=== PATIENT | female | born 1990 | race Hispanic/Latino ===

== ENCOUNTER 2018-05-13 18:53 | Emergency (ER) | payer OTHER ==
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
[2018-05-13 21:11] LABS: Absolute Lymphocytes (CBC) 2.1 K/uL (0.7-4.9); Absolute Monocytes 0.6 K/uL (0.1-1.3); Absolute Neutrophil 6.1 K/uL (1.8-8.0); Basophils % 0.5 % (0-1.3); Hematocrit 41.3 % (36.0-45.0); Lymphocytes % 22.8 % (15.3-44.8); MCH 31.3 pg (27.0-35.0); MCV 91.8 fL (80-100); MPV 10.3 fL (7.6-11.3); Monocytes % 6.5 % (3.3-12.3)
[2018-05-13 21:28] LABS: Albumin 4.1 g/dL (3.4-5.0); Bilirubin Direct 0.1 mg/dL (0-0.2); Bilirubin Total 0.3 mg/dL (0.2-1.0); Potassium 3.6 mmol/L (3.5-5.1); Protein, Total 8.6 g/dL (6.4-8.2)
[2018-05-13 21:43] LABS: Urine Amorphous Sediment 1+ /HPF (NONE SEEN); Urine Bacteria 20-50 /HPF (<20); Urine Culture Reflex Order REFLEXED; Urine Mucus 1+ /HPF (NONE SEEN)
[2018-05-13 21:44] LABS: Urine Blood 3+ (NEG); Urine Glucose NEGATIVE (NEG); Urine Protein NEGATIVE (NEG); Urine Specific Gravity 1.025 (1.005-1.030); Urine pH 6.5 (5.0-7.0)
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
== END 2018-05-13 22:51 | disposition home or self-care (01) ==
LOC: ER 18:53
DX: R51 Headache (principal)
CPT/HCPCS: 36415; 70450; 80048; 80076; 81003; 81015; 81025; 85025; 87077; 87086; 87088; 87186; 99284